=== PATIENT | male | born 1955 | race Caucasian/White ===

== ENCOUNTER → 2021-03-25 | Outpatient (CLI) | payer MEDICARE, OTHER | END | disposition home or self-care (01) | LOC: LABWHC1 15:23 | PROVIDERS: ATTEND Surgery | DX: Z20.822 Contact with and (suspected) exposure to COVID-19 (principal) | CPT/HCPCS: U0003; C9803; U0005 ==

== ENCOUNTER 2021-04-01 07:16 | Day surgery (SDC) | payer MEDICARE ==
[2021-03-30 10:15] VITALS: BMI 38.0
[~2021-04-01 07:16] MED LIST: LACTATED RINGERS 1,000 ML IV SCH
[2021-04-01 07:38] VITALS: TEMP 97.5
[2021-04-01] MEDS ORDERED: PROPOFOL 10 MG/ML 20 ML VIAL IV ONE (07:58)
--- NOTE | 2021-04-01 07:59 | P.HPIHPCON ---
History of Present Illness H&P Date: 04/01/21 65-year-old male presents for screening colonoscopy. He denies any blood in his stool, however was recently found to have a positive cologuard test. His last colonoscopy was 6 years ago. Consent for Procedure: I have explained the operation/procedure to the patient, including the risks, benefits, side effects, alternative therapies (including not receiving the proposed treatment or service), the likelihood of the patient achieving his/her goals, and potential recuperation problems for the procedure/sedation/analgesia, as well as any blood products, if indicated. I also explained to the patient the risks, benefits and side effects of the alternatives, as well as the risks related to not receiving the proposed procedure, care, treatment, or services. - Review of Systems All systems: negative Past Medical History Past Medical History: Asthma, GERD/Reflux, Hypertension, Osteoarthritis (OA), Pulmonary Embolus (PE), Sleep Apnea/CPAP/BIPAP Additional Past Medical History / Comment(s): PE 06/2012. History of Any Multi-Drug Resistant Organisms: None Reported Past Surgical History: Hernia Repair, Joint Replacement, Orthopedic Surgery, Tonsillectomy Additional Past Surgical History / Comment(s): RT KNEE AND ELBOW ARTHROSCOPIES, COLONOSCOPY,RT TKA Past Anesthesia/Blood Transfusion Reactions: No Reported Reaction Smoking Status: Former smoker - Past Family History Mother Family Medical History: No Reported History Medications and Allergies Home Medications Medication Instructions Recorded Confirmed Type Montelukast [Singulair] 10 mg PO HS 09/30/14 04/01/21 History Quinapril HCl [Accupril] 20 mg PO HS 09/30/14 04/01/21 History Tamsulosin [Flomax] 0.4 mg PO DAILY 03/30/21 04/01/21 History Warfarin [Coumadin] 10 mg PO DAILY 03/30/21 04/01/21 History Allergies Allergy/AdvReac Type Severity Reaction Status Date / Time No Known Allergies Allergy Verified 04/01/21 07:30 Surgical - Exam Osteopathic Statement: *. No significant issues noted on an osteopathic structural exam other than those noted in the History and Physical/Consult. Vital Signs Temp Pulse Resp BP Pulse Ox 97.5 F L 61 18 151/75 97 04/01/21 07:34 04/01/21 07:34 04/01/21 07:34 04/01/21 07:34 04/01/21 07:34 - General no distress - Respiratory normal respiratory effort - Abdomen Abdomen: soft, non tender Assessment and Plan Plan: 65-year-old male with recent positive cologuard test. Plan is for colonoscopy for further evaluation. Risks, benefits and alternatives were provided to the patient. Further recommendations to be made after procedure.
--- NOTE | 2021-04-01 08:17 | P.PCN ---
Date of Procedure: 04/01/21 Preoperative Diagnosis: Positive ColoGuard test Postoperative Diagnosis: Diverticulosis Internal hemorrhoids Procedure(s) Performed: Colonoscopy Anesthesia: MAC Surgeon: Choco Deluca Pathology: none sent Condition: stable Disposition: same day Indications for Procedure: 65-year-old male recently presented to the surgery clinic due to finding of a positive Cologuard test. He did not have gross blood in his stool. His last colonoscopy was 6 years ago. Plan is for colonoscopy. Risks, benefits and alternatives were provided to the patient. Operative Findings: Internal hemorrhoids Diverticulosis Description of Procedure: The patient was brought into the endoscopy suite and placed in left lateral decubitus position and adequate sedation was achieved using conscious sedation. A digital rectal exam was performed and internal hemorrhoids were palpated. An endoscope was then placed in the rectum and advanced to the cecum as identified by landmarks including the appendiceal orifice and ileocecal valve. The prep was good. The colonoscope was then slowly withdrawn, examining for any mucosal abnormalities. The cecum, ascending, transverse, descending and sigmoid colon were visualized adequately. There were no large neoplastic lesions noted throughout the colon. There were no obvious polyps noted throughout the colon. Diverticulosis was encountered throughout the colon and was noted to be moderate. Retroflexion was performed in the rectum and internal hemorrhoids were visible. Excess air was removed, the colonoscope withdrawn and the procedure terminated. The patient was then transferred to recovery unit in stable condition. Repeat colonoscopy should be performed in 5 years.
[2021-04-01 08:42] VITALS: BP 139/78; PULSE 50; RESP 18
== END 2021-04-01 09:00 | disposition home or self-care (01) ==
LOC: ORWHC2ENDO 07:16
PROVIDERS: ATTEND Surgery
DX: K64.8 Other hemorrhoids (principal); K57.30 Diverticulosis of large intestine without perforation or abscess without bleeding; J45.909 Unspecified asthma, uncomplicated; K21.9 Gastro-esophageal reflux disease without esophagitis; I10 Essential (primary) hypertension; M19.90 Unspecified osteoarthritis, unspecified site; Z86.711 Personal history of pulmonary embolism; G47.33 Obstructive sleep apnea (adult) (pediatric); Z96.651 Presence of right artificial knee joint; Z90.89 Acquired absence of other organs; Z86.718 Personal history of other venous thrombosis and embolism; Z98.890 Other specified postprocedural states; Z87.891 Personal history of nicotine dependence; Z79.01 Long term (current) use of anticoagulants; Z79.899 Other long term (current) drug therapy
CPT/HCPCS: 45378; J2704